=== PATIENT | female | born 1955 | race Caucasian/White ===

== ENCOUNTER 2020-07-27 13:41 | Observation (INO) | payer OTHER, SELFPAY ==
[2020-07-27] VITALS (8 sets, daily range): BP systolic 126–186; BP diastolic 79–114; PULSE 69–91; RESP 15–25; TEMP 36–37.1; O2SAT 91–97; BMI 19.7; BMI 18.8
--- NOTE | 2020-07-27 14:13 | CT_ITS ---
STUDY: CT BRAIN WITHOUT CONTRAST REASON FOR EXAM: Female, 65 years old. Intermittent dizziness/vomiting RADIATION DOSAGE (If Supplied By Facility): CTDIvol = ( 44.99 ) mGy, DLP = ( 779.24 ) mGycm TECHNIQUE: Transaxial CT imaging of the brain was performed without administration of intravenous contrast material. Individualized dose optimization techniques were used for this CT. COMPARISON: No relevant priors. FINDINGS: Normal soft tissue structures. Normal calvarium. There is mild cerebral atrophy with widening of the extra-axial spaces and ventricular dilatation. Normal white matter tracts of the cerebral hemispheres. Normal basal ganglia and thalami. Normal brainstem. Normal cerebellum. There is no intracranial hemorrhage. There are no findings of an acute ischemic infarction. Atherosclerotic plaque formation of the vertebral arteries and cavernous portions of the internal carotid arteries bilaterally. Normal visualized paranasal sinuses. CT/Brain/Head without Contrast IMPRESSION: Chronic involutional changes of the brain. Electronically Signed: Jose Saenz MD at 14:50 EST , Service support ,
--- NOTE | 2020-07-27 14:13 | RAD_ITS ---
STUDY: X-RAY CHEST REASON FOR EXAM: Female, 65 years old. Chest pain TECHNIQUE: Single AP portable view of the chest. COMPARISON: None. FINDINGS: EKG electrodes are seen. There is hyperinflation of the lungs consistent with chronic obstructive lung disease (COPD). There is blunting of both concerning angles with mild increased markings at the lung bases left greater than right suggestive of scarring. Normal size heart. Normal mediastinum and smitha. There is prominence of the pulmonary hilar arteries without peripheral pulmonary vascular congestion, suggesting pulmonary hypertension. There is atherosclerotic calcification of the aortic arch with tortuosity. There is a dextroscoliosis of the thoracic spine. Normal visualized ribs, clavicles, and shoulders. There is no demonstrated abnormality of the visualized soft tissue structures of the upper abdomen. RAD/Chest 1 View (Portable) IMPRESSION: Hyperinflation. Blunting of both costophrenic angles mild increased markings at the lung bases suggestive of atelectasis and/or scarring. This is slightly worse on the left side. Electronically Signed: Jose Saenz MD at 15:05 EST , Service support ,
--- NOTE | 2020-07-27 14:16 | ED.DCSUM_ITS ---
History of Present Illness Chief Complaint: Dizziness Informant: Patient Narrative: Patient is a 65-year-old female with a past medical history of COPD who presents to the emergency department for intermittent dizziness. She currently denies any active symptoms. She states this has been ongoing for the past 1 to 2 months. She states that she will have a day where she feels sick and she will go a few days without any symptoms. She describes as a room spinning sensation. She has to sit down and eventually her symptoms will resolve. She does not know aggravating symptoms. She does occasionally get nauseous and vomit without any dizziness. She denies any significant headache. No vision changes. Yesterday her daughter thought she was walking off to one side and said her eyes looked glazed over. She thought she might of had some speech issue at that time but this is since resolved. No shortness of breath past her baseline. No palpitations. No weakness or loss of sensation in any extremity. She has not tried taking anything for symptoms. Of note she has been feeling a pinching sensation in her chest. This does come and go as well. She does not know aggravating relieving factors for this either. No radiation of the symptoms. She denies any history of heart attacks, strokes or DVT/PE. She has a former smoking history and quit 8 years ago. She denies any significant cough. Past Medical History Prior records reviewed: Yes Surgical History: appendectomy Smoking Status: Former smoker - Family History Maternal Family History: Reports: - - no CVA Review of Systems All systems negative except as indicated General: Denies: Chills, Fever, Sweats Eyes: Denies: Visual changes - bilaterally, Diplopia ENT: Denies: Rhinorrhea, Sore throat Cardiovascular: Reports: Chest pain - Pinching sensation intermittently. Denies: Palpitations Respiratory: Denies: Dyspnea, Cough, Dyspnea on exertion Gastrointestinal: Denies: Abdominal pain, Nausea, Vomiting, Diarrhea Genitourinary: Denies: Dysuria, Hematuria, Frequency Musculoskeletal: Denies: Back pain, Extremity Pain Skin: Denies: Rash, Wounds Neurological: Reports: - - Dizziness. Denies: Headache, Weakness, Numbness Physical Exam Vital Signs/Narrative: Vital Signs Temp Pulse Resp BP Pulse Ox 07/27/20 13:42 96.8 F L 91 22 H 186/114 H 92 Inital Vital Signs reviewed: Yes General: Well nourished, Well developed, No Acute Distress Head: Normocephalic, Atraumatic Eyes: Perrl, EOMI, - - No nystagmus appreciated. ENT: Moist mucous membranes, No rhinorrhea Neck: Supple, Nontender Cardiovascular: Regular rate, Regular rhythm, No murmurs Respiratory: No distress, CTA bilaterally, Chest nontender, Decreased Air Movement Abdomen: Soft, Nontender, Nondistended, Normal bowel sounds Back: Nontender, Normal Inspection Extremities: Nontender, No edema Skin: Normal color, No rash Neurological: Alert, Oriented x3, Cranial nerves II-XII grossly intact, Normal Strength, Normal Sensation, - - NIH score 0. No discoordination.. Negative for: Left side facial droop, Right side facial droop Psychological: Normal affect, Normal Mood Diagnostic/Tx/Re-eval Chest X-Ray - ED: 1 View - Single view portable x-ray interpreted by myself. She does have emphysematous changes. Some scarring/atelectasis of lower bases bilaterally. No obvious consolidations. Normal cardiac silhouette. Agree with radiologist interpretation. - EKG Initial EKG Interpretation: - - Rate of 77 bpm and normal sinus rhythm. Normal intervals. Normal axis. No significant ST elevations or depressions. No T wave abnormali ties. - Medical Decision Making Patient presents to the ED for intermittent dizziness. Yesterday she thought she was walking up to one side and had a issue with her speech. She currently denies any symptoms now. She has had some intermittent pinching sensation in her chest. Upon arrival to the emerge department she is hypertensive. Satting in the low 90s on room air but in no respiratory distress. NIH score of 0 on arrival. She is not a TPA candidate for strokelike symptoms. Patient CT scan of her head did not reveal any acute intracranial abnormality. Lab work-up did not reveal any significant acute abnormality. Given the fact that she has had these intermittent vertigo-like symptoms but had an episode where she was walking up to one side and had issues with her speech I do feel this warrants a hospitalization for full stroke/TIA work-up. She otherwise has been stable throughout ED stay. Will bring to the hospital at this time. ED Disposition - Plan for ED Patient: Disposition: Acute Care Hospital [facility] Diagnosis: Dizziness, TIA (transient ischemic attack)
--- NOTE | 2020-07-27 14:31 | EKG12_ITS ---
Test Reason : Blood Pressure : / mmHG Vent. Rate : 077 BPM Atrial Rate : 077 BPM P-R Int : 158 ms QRS Dur : 072 ms QT Int : 412 ms P-R-T Axes : 077 054 058 degrees QTc Int : 466 ms Normal sinus rhythm with sinus arrhythmia Normal ECG Confirmed by JEY JACQUES, JONAH ([id number]), graphic editor LINK OTERO ([id number]) on 08/01/2020 2:18:38 PM Referred By: MEGHA Confirmed By:JONAH KHANNA MD
[2020-07-27 14:36] LABS: Absolute Lymphocyte Count 0.63 X10^3/uL (0.83-4.51); Absolute Neutrophil Count 3.1 X10^3/uL (2.0-7.7); Basophil# 0.03 X10^3/uL; Basophil% 0.7 % (0-1); Eosinophil# 0.07 X10^3/uL; Eosinophils% 1.6 % (0-5); Hematocrit 38.5 % (37-47); Hemoglobin 13.3 g/dL (12.0-15.0); Lymphocyte # 0.63 X10^3/ul (4.0); Lymphocyte % 14.4 % (19-41); Mean Corp Hgb Conc 34.5 g/dL (32-36); Mean Corpuscular Hgb 33.8 pg (27.0-32.0); Mean Platelet Vol. 8.8 fl (6.2-12.0); Monocyte# 0.59 X10^3/uL; Monocyte% 13.4 % (0-10); NRBC Flagged by Analyzer 0 % (0-5); Neutrophil # 3.06 X10^3/uL (2.7-7.7); Neutrophil % 69.7 % (47-70); Platelet Count 371 K/mm3 (150-450); RBC Distribution Width CV 15.5 % (11.6-14.6); RBC Distribution Width SD 55.2 fl (35.1-43.9); Red Blood Count 3.93 M/mm3 (4.2-5.4); White Blood Count 4.4 K/mm3 (4.4-11.0)
[2020-07-27 14:51] LABS: ALB/GLOB Ratio 1.1 RATIO (0.9-2.4); AST(SGOT) 31 U/L (15-37); Alanine Aminotransfer ALT/SGPT 37 U/L (13-56); Alkaline Phosphatase 81 U/L (45-117); Anion Gap 8 (5-15); BUN 13 mg/dL (7-18); Calcium,Total 8.9 mg/dL (8.5-10.1); Chloride 94 mmol/L (98-107); Creatinine, Serum 0.82 mg/dL (0.55-1.02); EST Glomerular Filtration Rate 75 mL/min (>60); Est Glom Filt Rate - Afr Amer 91 mL/min (>60); Estimated Creatinine Clearance 57.83 ml/min; Globulin 3.7 g/dL (2.2-4.2); Glucose 89 mg/dL (74-106); Potassium 3.7 mmol/L (3.5-5.1); Protein, Total 7.7 g/dL (6.4-8.2); Sodium Level 131 mmol/L (136-145)
--- NOTE | 2020-07-27 16:13 | HP.PCM_ITS ---
Problem List (1) Dizziness Status: Acute History of Present Illness Date of Admission: 07/27/20 Chief Complaint: dizziness The patient is a 65 year old F who for months has been experiencing intermittent dizziness. Particular happens when she changes position but though can go days without symptoms. When she does feel dizzy she does have nausea and vomiting but can also intermittent nausea vomiting without the dizziness. Yesterday, while she was feeling dizzy, was leaning towards 1 side and had slurred speech and the daughter noticed her eyes were glassed over. Given the worsening symptoms yesterday patient was brought to the emergency room. In the emergency room patient underwent a work-up that was unremarkable but given her ongoing symptoms the hospital service was contacted for admission for further neurologic assessment. [] Past Medical History Medical History: Medical History (Last Updated 07/27/20 @ 16:[address] 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 COPD (chronic obstructive pulmonary disease) J44.9 Surgical History: appendectomy Smoking Status: Former smoker Tobacco Use: Cigarettes Alcohol: Occasional - *Family History Maternal History Items: - - no CVA Review of Systems Constitutional: Denies: Anorexia, Chills, Fever, Night Sweats Eyes: Denies: Blurred vision, Double vision HEENT: Denies: Head Aches, Sinus Congestion, Sinus Drainage Cardiovascular: Denies: Chest Pain, Palpitations Respiratory: Denies: Cough, Shortness of breath at rest, Sputum production Gastrointestinal: Denies: Abdominal Pain, Nausea, Vomiting Genitourinary: Denies: Dysuria Musculoskeletal: Denies: Joint Pain, Joint Tenderness Skin: Denies: Rash, Wounds Neurological: Reports: Balance problems Psychiatric: Reports: Anxiety, Depression Comment: All review of systems were negative except as mentioned above in the history of present illness and the other review of systems. VTE Information - Inpt Only VTE Present on Admission: No VTE Mechan Device Prophylaxis: None VTE Pharm Prophylaxis ordered?: No Reason prophylaxis not ordered:: Treatment Not Indicated - Physical Exam Vitals/I&O's: Vital Signs Temp Pulse Resp BP Pulse Ox 36.0 C L 79 25 H 157/90 H 97 07/27/20 13:42 07/27/20 15:45 07/27/20 15:45 07/27/20 15:45 07/27/20 15:45 Oxygen Delivery Method Room Air Weight: 52.163 kg Body Mass Index (BMI) 19.7 General: Alert, Cooperative, No apparent distress HEENT: Atraumatic, PERRLA, EOMI, Normocephalic Oral: Moist Mucosa, No Gingival or Mucosal Lesions/ Ulcerations Neck: No Nodes, Thyroid Normal Size and Texture Lungs: Clear to auscultation, Normal air movement, No rhonchi, No wheeze Cardiovascular: Regular rate, Regular Rhythm, Normal S1, Normal S2, No murmurs Abdomen: Bowel Sounds Present, Soft, Non Tender, Non-Distended, No Hepato- splenomegaly Extremities: No edema, No Calf Tenderness Skin: No rashes, No breakdown Musculoskeletal: No Tenderness to Palpation of Joints or Extremities, No Muscle Wasting Neurological: Cranial nerves II-XII grossly intact, Motor Exam 5/5 strength throughout, Sensory exam intact to light touch and pain Psych/Mental Status: Normal Affect, Appropriate Laboratory Results 07/27/20 14:28: WBC 4.4, RBC 3.93 L, Hgb 13.3, Hct 38.5, MCV 98.0, MCH 33.8 H, MCHC 34.5, RDW Std Deviation 55.2 H, RDW Coeff of Wes 15.5 H, Plt Count 371, MPV 8.8, Immature Gran % (Auto) 0.200, Neut % (Auto) 69.7, Lymph % (Auto) 14.4 L, Hendricks % (Auto) 13.4 H, Eos % (Auto) 1.6, Baso % (Auto) 0.7, Absolute Neuts (auto) 3.1, Absolute Lymphs (auto) 0.63 L, Nucleated RBC % 0 07/27/20 14:28: Sodium 131 L, Potassium 3.7, Chloride 94 L, Carbon Dioxide 29.0, Anion Gap 8, BUN 13, Creatinine 0.82, Estim Creat Clear Calc 57.83, Est GFR (MDRD) Af Amer 91, Est GFR (MDRD) Non-Af 75, BUN/Creatinine Ratio 16.0, Glucose 89, Calcium 8.9, Total Bilirubin 0.40, AST 31, ALT 37, Alkaline Phosphatase 81, Troponin I < 0.015, Total Protein 7.7, Albumin 4.0, Globulin 3.7, Albumin/Globulin Ratio 1.1 EKG reviewed showed normal sinus rhythm without acute changes. Clinical Impression(s) from Imaging Studies Brain CT 07/27/20 14:13 IMPRESSION: Chronic involutional changes of the brain. Electronically Signed: Jose Saenz MD at 14:50 EST , Service support , Chest X-Ray 07/27/20 14:13 IMPRESSION: Hyperinflation. Blunting of both costophrenic angles mild increased markings at the lung bases suggestive of atelectasis and/or scarring. This is slightly worse on the left side. Electronically Signed: Jose Saenz MD at 15:05 EST , Service support , Assessment/Plan All Active Problems Dizziness (Acute) 1. Dizziness Etiology suspected to be benign paroxysmal positional vertigo, however cannot rule out CVA. Plan: * Check MRI of the brain and if positive for stroke then would check an MRA of the head neck. I am not ordering the MRA right away as my suspicion for this being stroke is very low given its intermittent nature. * As needed meclizine * PT OT evaluate and treat * Echocardiogram * Consider neurology consultation if positive stroke. * Patient will be started on aspirin but may discontinue if no evidence of stroke is identified. 2. HSV of the left eye Continue with valacyclovir 3. VTE prophylaxis: Low risk as she is observation status and not indicated. 4. Advanced care planning: Discussed with patient. Patient wishes to be full CODE STATUS. OBSV E&M: [id number] Initial observation care L3
--- NOTE | 2020-07-27 17:17 | MRI_ITS ---
STUDY: MRI BRAIN WITHOUT CONTRAST REASON FOR EXAM: Female, 65 years old. dizziness TECHNIQUE: Standardized multiplanar fat and water weighted pulse sequences were obtained. COMPARISON: CT of the brain 07/28/2019 FINDINGS: Mild atrophy and minimal periventricular white matter ischemic changes without mass effect or restricted diffusion. Normal bilateral basal ganglia. Normal thalami. There is no extra-axial fluid accumulation. Normal flow voids within the major intracranial circulation suggesting patency by spin echo criteria. Partial empty sella deformity likely of no significance. Normal infundibular stalk, optic chiasm and hypothalamus. Normal tectal plate and pineal gland. Normal midbrain, adeel and medulla. Normal cerebellum. Normal basal cisterns. Normal bilateral temporal bones. Normal bilateral internal auditory canals. No demonstrated orbital abnormality, within the constraints of a routine brain study. Normal visualized paranasal sinuses. Normal calvarium and skull base. Normal visualized soft tissue structures. Normal visualized upper cervical spine. MRI/Brain without Contrast IMPRESSION: Mild atrophy and minimal periventricular white matter ischemic change without evidence for acute infarct. Partial empty sella deformity likely of no significance. Electronically Signed: Adonay Wilson MD at 20:56 EST , Service support ,
--- NOTE | 2020-07-27 17:17 | ECHOD_ITS ---
Reason For Study: TIA/CVA Left Ventricle Normal left ventricle. Left ventricular systolic function is normal. The estimated ejection fraction is 55-60 %. Right Ventricle Normal systolic function. Atria Normal left atrium. Normal right atrium. 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 Mitral Valve The mitral valve is structurally normal. No prolapse or stenosis seen. There is mild to moderate mitral annular calcification. Tricuspid Valve Normal tricuspid valve. Mild to moderate (1-2+) tricuspid valve insufficiency. Aortic Valve Trivial aortic valve insufficiency. Pulmonic Valve The pulmonic valve is not well visualized. Great Vessels Normal aortic root. Inferior vena cava collapse with respiration. Pericardium/Pleural No pericardial effusion. Medication Performed a rapid injection of agitated mix of 9 cc saline and 1cc air to assess for atrial septal defect. MMode/2D Measurements & Calculations LVIDd: 3.9 cm IVSd: 0.82 cm Ao root diam: 3.1 cm LVIDs: 2.5 cm LVPWd: 0.89 cm RVDd: 3.6 cm FS: 37.0 % LAV(MOD-bp): 35.1 ml LVAd ap4: 21.8 cm2 SV(MOD-sp4): 30.6 ml LAV(MOD-bp) Indexed: 23.1 ml/m2 EDV(MOD-sp4): 55.6 ml LAV(MOD-sp2): 35.6 ml EDV(sp4-el): 55.2 ml LAV(MOD-sp4): 31.7 ml LVAs ap4: 13.4 cm2 ESV(MOD-sp4): 25.1 ml ESV(sp4-el): 24.6 ml EF(MOD-sp4): 55.0 % EF(sp4-el): 55.5 % SV(sp4-el): 30.7 ml LA A4 area: 13.9 cm2 LA dimension(2D): 3.8 cm RA A4 area: 10.3 cm2 Time Measurements MV dec time: 0.20 sec Doppler Measurements & Calculations MV E max yaw: 86.9 cm/sec Lat Peak E' Yaw: 10.8 cm/sec Med Peak E' Yaw: 6.7 cm/sec MV A max yaw: 79.3 cm/sec E/E' lat: 8.1 E/E' med: 12.9 MV E/A: 1.1 Ao V2 max: 132.7 cm/sec LV V1 max: 98.0 cm/sec PA V2 max: 107.1 cm/sec Ao max P.0 mmHg LV V1 max P.8 mmHg TR max yaw: 230.4 cm/sec TR max P.3 mmHg Interpretation Summary Left ventricular systolic function is normal. The estimated ejection fraction is 55-60 %. Mild to moderate (1-2+) tricuspid valve insufficiency. 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
[2020-07-27 18:03] LABS: Thyroid Stim Hormone (TSH) 0.68 uIU/mL (0.358-3.74)
--- NOTE | 2020-07-27 18:44 | NURSING ---
1743-Respiratory therapist, Irene, called to inform of order for cont. SpO2.
[2020-07-28] VITALS (7 sets, daily range): BP systolic 136–152; BP diastolic 77–87; PULSE 67–76; RESP 16–17; TEMP 36.4–37.4; O2SAT 90–99
[2020-07-28 06:34] LABS: Anion Gap 4 (5-15); BUN 12 mg/dL (7-18); BUN/Creat Ratio 19.1 RATIO (10-20); Calcium,Total 8.5 mg/dL (8.5-10.1); Chloride 99 mmol/L (98-107); Cholesterol 222 mg/dL (200); Creatinine, Serum 0.63 mg/dL (0.55-1.02); EST Glomerular Filtration Rate 102 mL/min (>60); Est Glom Filt Rate - Afr Amer 123 mL/min (>60); Estimated Creatinine Clearance 71.99 ml/min; Glucose 83 mg/dL (74-106); High Density Lipoprotein 105 mg/dL; Potassium 3.8 mmol/L (3.5-5.1); Sodium Level 135 mmol/L (136-145); Triglycerides 65 mg/dL; Very Low Density Lipoprotein 13 mg/dL (5-40)
[2020-07-28] MEDS: Aspirin 81 MG TAB.CHEW PO (09:13)
--- NOTE | 2020-07-28 13:05 | DCINST_ITS ---
- Discharge Diagnoses Current Active Problems: Current Active and Chronic Problems (Last Updated 07/27/20 @ 16:[address] Reynold Perez, DO) Dizziness (Acute) TIA (transient ischemic attack) (Acute) Reason(s) for Visit for Discharge Instructions: Dizziness/Stroke rule out You will use the following diet at home:: No restrictions, Regular Your food should be the consistency of: Regular Your liquids should be the consistency of: Regular/Thin Discharge Activity: Return to Normal Activity Return to work on:: 07/29/20 May shower in (days): 1 May resume sexual activity in: No Restrictions Weight Bearing Status: Weight bearing as tolerated Allergies/Adverse Reactions: Allergies No Known Allergies Allergy (Verified 07/27/20 17:18) Medications to take at Discharge Albuterol Aerosols [Ventolin Aerosols] 2.5 mg INHALATION Q6H PRN PRN 07/27/20 Albuterol IH (ProAir) [Proair Hfa] 2 puff INHALATION Q4H PRN PRN 07/27/20 Budesonide/Formoterol 160/4.5 [Symbicort 160/4.5 Mcg Inhaler (SP)] 1 puff INHALATION DAILY 07/27/20 Cholecalciferol (Vitamin D3) [D3-2000] 2,000 unit PO DAILY 07/27/20 Fluoxetine HCl 40 mg PO DAILY 07/27/20 Tiotropium [place] [Spiriva] 1 puff INHALATION DAILY 07/27/20 Valacyclovir HCl [Valtrex] 1,000 mg PO DAILY 07/27/20 prednisoLONE eye drops (5 mL) [Pred Forte eye drops (5 mL)] 1 drp LEFT EYE DAILY 07/27/20 Meclizine HCl [Antivert] 25 mg PO TID PRN PRN tab 07/28/20 Primary Care Physician: Rios Parry [Primary Care Provider] - Test Results: Test results from this visit will be discussed in further detail at your follow- up appointment, if applicable. Please Follow Up With: Primary care provider When: Within the next week Proposed Discharge Date: 07/28/20
--- NOTE | 2020-07-28 13:09 | DS.PCM_ITS ---
<Denis Overton - Last Filed: 07/28/20 13:53> Discharge Date and Diagnosis - Problem List Patient Problems: Active and Suspected Problems (Last Updated 07/27/20 @ 16:[address] Reynold Perez DO) Dizziness (Acute) Date of Admission: 07/27/20 Date of Discharge: 07/28/20 - Primary Discharge Diagnosis Acute Problems: Active Problems (Last Updated 07/27/20 @ 16:[address] Reynold Perez DO) Dizziness (Acute) TIA (transient ischemic attack) (Acute) Hospital Course and Treatment Imaging Results: Brain CT: No evidence of intracranial hemorrhage. No evidence of acute ischemic infraction. Altherosclerotic plaque formation of the vertebral arteries and cavernous portions of the internal carotid arteries. Brain MRI: Normal. Mild ischemic changes without mass effect or restricted diffuesion. Echocardiogram: LV systolic function is normal. Estimated EF is 55-60%. Mild to moderate tricuspid valve insufficiency. Bubble study is positive for Patent Foramen [place]. Operations: None Procedures: None Summary of Care Provided: A/P This patient is a 65 y/o female who was admitted on 07/27/20 with a chief complaint of dizziness, hemiplegia, and slurred speech. Patient was admitted for stroke evaluation. Brain CT and MRI were ordered. Both demonstrated no evidence of acute hemorrhage or ischemia. Echocardiogram demonstrated an estimated EF of 55-60%, normal LV systolic function, a PFO, and mild to moderate tricuspid valve insufficiency. 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 Patient seen by Denis Overton PA-C, under the supervision of Dr. Peacock Patient Problems: Active and Suspected Problems (Last Updated 07/27/20 @ 16:[address] Reynold Perez DO) Dizziness (Acute) - Physical Exam Vitals/I&O's: Vital Signs Temp Pulse Resp BP Pulse Ox 99.4 F H 74 17 145/83 H 94 07/28/20 12:10 07/28/20 12:10 07/28/20 12:10 07/28/20 12:10 07/28/20 12:10 Oxygen Flow Rate (L/min) 4 Oxygen Delivery Method Room Air Weight: 110 lb Body Mass Index (BMI) 18.8 Intake and Output for Last 24 Hours 07/26/20 07/27/20 07/28/20 23:59 23:59 23:59 Intake Total 350 / 350 350 / 350 Balance 350 / 350 350 / 350 General: Alert, Oriented x3, Cooperative HEENT: Atraumatic, PERRLA, EOMI, Normocephalic, - - HSV of the L. eye Neck: Supple, No JVD, Negative Carotid Bruits Lungs: Clear to auscultation, Normal air movement Cardiovascular: Regular rate, No murmurs Abdomen: Bowel Sounds Present, Soft, Non Tender Extremities: No edema, Capillary Refill Less than 3 Seconds Skin: No rashes, No breakdown Musculoskeletal: No Tenderness to Palpation of Joints or Extremities Neurological: Cranial nerves II-XII grossly intact Psych/Mental Status: Normal Affect, Appropriate Laboratory Results 07/27/20 14:28: WBC 4.4, RBC 3.93 L, Hgb 13.3, Hct 38.5, MCV 98.0, MCH 33.8 H, M CHC 34.5, RDW Std Deviation 55.2 H, RDW Coeff of Wes 15.5 H, Plt Count 371, MPV 8.8, Immature Gran % (Auto) 0.200, Neut % (Auto) 69.7, Lymph % (Auto) 14.4 L, [place] % (Auto) 13.4 H, Eos % (Auto) 1.6, Baso % (Auto) 0.7, Absolute Neuts (auto) 3.1, Absolute Lymphs (auto) 0.63 L, Nucleated RBC % 0 07/27/20 14:28: Sodium 131 L, Potassium 3.7, Chloride 94 L, Carbon Dioxide 29.0, Anion Gap 8, BUN 13, Creatinine 0.82, Estim Creat Clear Calc 57.83, Est GFR (MDRD) Af Amer 91, Est GFR (MDRD) Non-Af 75, BUN/Creatinine Ratio 16.0, Glucose 89, Calcium 8.9, Total Bilirubin 0.40, AST 31, ALT 37, Alkaline Phosphatase 81, Troponin I < 0.015, Total Protein 7.7, Albumin 4.0, Globulin 3.7, Albumin/Globulin Ratio 1.1 07/27/20 14:28: TSH 0.68 07/28/20 05:36: Sodium 135 L, Potassium 3.8, Chloride 99, Carbon Dioxide 32.0, Anion Gap 4 L, BUN 12, Creatinine 0.63, Estim Creat Clear Calc 71.99, Est GFR (MDRD) Af Amer 123, Est GFR (MDRD) Non-Af 102, BUN/Creatinine Ratio 19.1, Glucose 83, Calcium 8.5, Triglycerides 65, Cholesterol 222 H, LDL Cholesterol 104, VLDL Cholesterol 13, HDL Cholesterol 105 Current Medications Acetaminophen (Acetaminophen 325 Mg Tablet) 650 mg PO Q6H PRN PRN PRN Reason: Pain Score 1-10/Temp > 100.7 F Albuterol Sulfate (Albuterol 2.5 Mg/3 Ml Vial.Neb.) 2.5 mg INHALATION Q2H PRN PRN PRN Reason: SOB/Wheezing Aspirin (Aspirin 81 Mg Tab.Chew) 81 mg PO DAILY@0800 [facility] Last Admin: 07/28/20 09:13 Dose: 81 mg Documented by: Hydralazine HCl (Hydralazine 20 Mg/Ml Vial) 5 mg IV Q30M PRN PRN Reason: to maintain BP goals Labetalol HCl (Labetalol (Prefilled) 20 Mg/4 Ml) 10 - 20 mg IV Q10M PRN PRN PRN Reason: to Maintain BP Goals Meclizine HCl (Meclizine Hcl 25 Mg Tablet) 25 mg PO TID PRN PRN PRN Reason: Vertigo Ondansetron HCl (Ondansetron 4 Mg/2 Ml Vial) 4 mg IV Q8H PRN PRN PRN Reason: NAUSEA/VOMITING Sodium Chloride (0.9% Saline Lock 10 Ml Syringe) 10 - 40 ml IV UD PRN PRN Reason: SALINE FLUSH Discharge Activity: Return to Normal Activity Return to work on:: 07/29/20September shower in (days): 1 May resume sexual activity in: No Restrictions Weight Bearing Status: Weight bearing as tolerated Call your doctor if you observe: Numbness or Tingling, Shortness of breath, Dizziness, Fainting spells, Chest pain, Increased palpitations (irregular heartbeat), Calf discomfort, Uncontrolled pain Home Medications: Medications to take at Discharge Albuterol Aerosols [Ventolin Aerosols] 2.5 mg INHALATION Q6H PRN PRN 07/27/20 Albuterol IH (ProAir) [Proair Hfa] 2 puff INHALATION Q4H PRN PRN 07/27/20 Budesonide/Formoterol 160/4.5 [Symbicort 160/4.5 Mcg Inhaler (SP)] 1 puff INHALATION DAILY 07/27/20 Cholecalciferol (Vitamin D3) [D3-2000] 2,000 unit PO DAILY 07/27/20 Fluoxetine HCl 40 mg PO DAILY 07/27/20 Tiotropium [place] [Spiriva] 1 puff INHALATION DAILY 07/27/20 Valacyclovir HCl [Valtrex] 1,000 mg PO DAILY 07/27/20 prednisoLONE eye drops (5 mL) [Pred Forte eye drops (5 mL)] 1 drp LEFT EYE DAILY 07/27/20 Meclizine HCl [Antivert] 25 mg PO TID PRN PRN #14 tab 07/28/20 Following Prescriptions Were Given to Patient: Meclizine HCl [Antivert] 25 mg PO TID PRN PRN #14 tab PRN Reason: Vertigo Transmission Status: Received by [facility]/pharmacy #[id number] Primary Care Physician: Rios Parry [Primary Care Provider] - Please Follow Up With: Primary care provider When: Within the next week Disposition: Home Minutes spent on discharge:: 15 Patient Condition:: Good Medical Necessity - Tobacco Use Smoking Status: Former smoker Tobacco Use: Cigarettes Meaningful Use Info Meaningful Use Diagnoses (Choose all that apply): None applicable <AyushKaelakeith Fuchs - Last Filed: 07/29/20 09:43> Discharge Date and Diagnosis - Primary Discharge Diagnosis Acute Problems: Active Problems (Last Updated 07/27/20 @ 16:[address] Reynold Perez, DO) Dizziness (Acute) Hospital Course and Treatment Summary of Care Provided: Hospitalist note: Discharge summary above reviewed and I concur with above discharge treatment plan. Patient presented to the emergency room because of intermittent dizziness which was described as spinning sensation along with unsteadiness which has been going on for couple of weeks, it was positional. On the day of admission, she was leaning towards 1 side and she had reported slurred speech as well. She was admitted for evaluation for possible TIA. CT scan brain showed no acute findings. EKG revealed normal sinus rhythm without evidence of acute hemic changes or cardiac arrhythmias. Chest x-ray showed no acute findings. Routine blood work was unremarkable. TSH was normal. She was admitted to the floor, started on Antivert as needed. She had MRI done that showed no evidence of acute infarct or hemorrhage. 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 Acute stroke ruled out. Her symptoms are likely due to BPPV. Patient discharged home in stable medical condition, discharged on Antivert as needed for vertigo, recommended follow-up with PCP in 1 week. - Physical Exam General: Alert, Oriented x3, Cooperative, No apparent distress. HEENT: Atraumatic, PERRLA, EOMI. Neck: Supple, No JVD, Negative Carotid Bruits, Trachea Midline, Thyroid Normal. Lungs: Clear to auscultation, Normal air movement, No rhonchi, No wheeze, No rales. Cardiovascular: Regular rate, Regular Rhythm, Normal S1, Normal S2, PMI Normal. Abdomen: Bowel Sounds Present, Soft, Non Tender, Non-Distended, No Hepato- splenomegaly. Extremities: No clubbing, No cyanosis, No edema Skin: No rashes, No breakdown Neurological: Cranial nerves are intact, no focal deficit. Neuro grossly intact Vital Signs are stable. This note was generated with Seriously dictation software. It may contain incorrect words, spelling, and punctuation that were not noted in checking the note before signing. - Physical Exam Vitals/I&O's: Vital Signs Temp Pulse Resp BP Pulse Ox 99.4 F H 74 17 145/83 H 94 07/28/20 12:10 07/28/20 12:10 07/28/20 12:10 07/28/20 12:10 07/28/20 12:10 Oxygen Flow Rate (L/min) 4 Oxygen Delivery Method Room Air Weight: 110 lb Body Mass Index (BMI) 18.8 Intake and Output for Last 24 Hours 07/26/20 07/27/20 07/28/20 23:59 23:59 23:59 Intake Total 350 / 350 350 / 350 Balance 350 / 350 350 / 350 Laboratory Results 07/27/20 14:28: WBC 4.4, RBC 3.93 L, Hgb 13.3, Hct 38.5, MCV 98.0, MCH 33.8 H, MCHC 34.5, RDW Std Deviation 55.2 H, RDW Coeff of Wes 15.5 H, Plt Count 371, MPV 8.8, Immature Gran % (Auto) 0.200, Neut % (Auto) 69.7, Lymph % (Auto) 14.4 L, [place] % (Auto) 13.4 H, Eos % (Auto) 1.6, Baso % (Auto) 0.7, Absolute Neuts (auto) 3.1, Absolute Lymphs (auto) 0.63 L, Nucleated RBC % 0 07/27/20 14:28: Sodium 131 L, Potassium 3.7, Chloride 94 L, Carbon Dioxide 29.0, Anion Gap 8, BUN 13, Creatinine 0.82, Estim Creat Clear Calc 57.83, Est GFR (MDRD) Af Amer 91, Est GFR (MDRD) Non-Af 75, BUN/Creatinine Ratio 16.0, Glucose 89, Calcium 8.9, Total Bilirubin 0.40, AST 31, ALT 37, Alkaline Phosphatase 81, Troponin I < 0.015, Total Protein 7.7, Albumin 4.0, Globulin 3.7, Albumin/Globulin Ratio 1.1 07/27/20 14:28: TSH 0.68 07/28/20 05:36: Sodium 135 L, Potassium 3.8, Chloride 99, Carbon Dioxide 32.0, Anion Gap 4 L, BUN 12, Creatinine 0.63, Estim Creat Clear Calc 71.99, Est GFR (MDRD) Af Amer 123, Est GFR (MDRD) Non-Af 102, BUN/Creatinine Ratio 19.1, Glucose 83, Calcium 8.5, Triglycerides 65, Cholesterol 222 H, LDL Cholesterol 104, VLDL Cholesterol 13, HDL Cholesterol 105 Current Medications Acetaminophen (Acetaminophen 325 Mg Tablet) 650 mg PO Q6H PRN PRN PRN Reason: Pain Score 1-10/Temp > 100.7 F Albuterol Sulfate (Albuterol 2.5 Mg/3 Ml Vial.Neb.) 2.5 mg INHALATION Q2H PRN PRN PRN Reason: SOB/Wheezing Aspirin (Aspirin 81 Mg Tab.Chew) 81 mg PO DAILY@0800 [facility] Last Admin: 07/28/20 09:13 Dose: 81 mg Documented by: Hydralazine HCl (Hydralazine 20 Mg/Ml Vial) 5 mg IV Q30M PRN PRN Reason: to maintain BP goals Labetalol HCl (Labetalol (Prefilled) 20 Mg/4 Ml) 10 - 20 mg IV Q10M PRN PRN PRN Reason: to Maintain BP Goals Meclizine HCl (Meclizine Hcl 25 Mg Tablet) 25 mg PO TID PRN PRN PRN Reason: Vertigo Ondansetron HCl (Ondansetron 4 Mg/2 Ml Vial) 4 mg IV Q8H PRN PRN PRN Reason: NAUSEA/VOMITING Sodium Chloride (0.9% Saline Lock 10 Ml Syringe) 10 - 40 ml IV UD PRN PRN Reason: SALINE FLUSH Disposition: Home Minutes spent on discharge:: 26 Patient Condition:: Stable Meaningful Use Info Meaningful Use Diagnoses (Choose all that apply): None applicable OBSV E&M: 19588 Observation care discharge
--- NOTE | 2020-07-28 13:52 | CASEMGMT ---
Social Work SW met with pt in room and introduced self and role of SW. Pt presenting with stroke like symptoms. PHQ9 depression assessment completed with pt score of 2/27 indicating minimal depression. Pt denies depression and has no thoughts of harming herself nor concerns with returning home. SW explained association of stroke and depressions and encouraged pt that if she feels a decline in mood to reach out to PCP or counselor. No further SW needs at this time. SAURAV Pond
== END 2020-07-28 13:08 | disposition home or self-care (01) ==
LOC: ED 15:26 → PCU 16:18
PROVIDERS: Emergency Provider Emergency Medicine; PCP Student in an Organized Health Care Education/Training Program; Visit Provider Hospitalist
DX: G45.9 Transient cerebral ischemic attack, unspecified (principal); R47.81 Slurred speech; B00.50 Herpesviral ocular disease, unspecified; J44.9 Chronic obstructive pulmonary disease, unspecified; Z79.899 Other long term (current) drug therapy; Z87.891 Personal history of nicotine dependence; Z79.51 Long term (current) use of inhaled steroids
CPT/HCPCS: 36415; 70450; 70551; 71045; 80048; 80053; 80061; 84443; 84484; 85025; 93005; 93306; 94762; 99218; 99283; A4216; G0378

== ENCOUNTER → 2020-12-16 13:00 | Outpatient (CLI) | payer OTHER, SELFPAY ==
[2020-07-27 16:41] VITALS: BMI 18.8
--- NOTE | 2020-12-16 13:10 | MRI_ITS ---
STUDY: MRI BRAIN WITH AND WITHOUT CONTRAST MR INTERNAL AUDITORY CANALS WITHOUT AND WITH IV CONTRAST REASON FOR EXAM: Female, 65 years old. DIZZINESS TECHNIQUE: Standardized multiplanar fat and water weighted pulse sequences were obtained. IV 9ml Dotarem was administered for the contrast portion of the examination. COMPARISON: 27 July 2020 FINDINGS: Normal size of the ventricles and extra-axial spaces for the patient''s age. There is normal for age white matter periventricular involutional change. Normal bilateral basal ganglia. Normal thalami. There is no extra-axial fluid accumulation. Normal flow voids within the major intracranial circulation suggesting patency by spin echo criteria. Normal venous enhancement. There is no enhancing intra-axial or extra-axial abnormality. Normal sella turcica, pituitary gland, infundibular stalk, optic chiasm and hypothalamus. Normal tectal plate and pineal gland. Normal midbrain, adeel and medulla. Normal cerebellum. Normal basal cisterns. Normal bilateral temporal bones. Normal bilateral internal auditory canals. No demonstrated orbital abnormality, within the constraints of a routine brain study. Normal visualized paranasal sinuses. Normal calvarium and skull base. Normal visualized soft tissue structures. Normal visualized upper cervical spine. Cerebellopontine angles are clear. Cranial nerves VII and VIII and temporal bones are normal. MRI/Brain W/WO Contrast IMPRESSION: 1. Normal brain. 2. Normal temporal bone contents. Electronically Signed: Alexa Sanders MD at 18:26 EDT Tel , Service support ,
[2020-12-16 13:26] LABS: CREATININE FINGERSTICK < 0.6 mg/dL (0.55-1.02); EGFR FINGERSTICK > 60.0000 mL/min (>60)
== END ==
PROVIDERS: PCP Student in an Organized Health Care Education/Training Program; Referring Provider Otolaryngology; Visit Provider Otolaryngology
DX: R42 Dizziness and giddiness (principal)
CPT/HCPCS: 70553; A9575

== ENCOUNTER 2022-04-13 14:37 | Emergency (ER) | payer MEDICARE, OTHER, SELFPAY ==
[2022-04-13 14:38] VITALS: BP 219/106; PULSE 76; RESP 14; TEMP 36.8; O2SAT 95; BMI 19.0
[2022-04-13 14:40] VITALS: BP 192/104; PULSE 75; RESP 16; TEMP 36.7; O2SAT 93
[2022-04-13 14:42] VITALS: BP 192/104; PULSE 75; RESP 16; O2SAT 93
--- NOTE | 2022-04-13 14:49 | EDS_ITS ---
HPI History of Present Illness Chief Complaint: Wound Detail of Chief Complaint: Wound to left elbow Informant: patient Narrative Narrative: Patient presents the emergency department with complaint of a wound to her left elbow. Patient states that she fell onto her left elbow when she tripped over her dog 3 weeks ago. There was no laceration or open wound to the elbow at the time just mild soreness in really had a lot of swelling. 2 weeks later subsequently developed more pain and swelling in the area over the elbow opened up and started draining some yellow fluid. Patient was seen by her primary care physician and started on Keflex 3 days ago. Patient was seen again for follow- up today and there was no improvement in the appearance of the wound and was referred to the emergency department. Patient denies any fever or sweats. [facility] Medical History (Updated 04/13/22 @ 15:[address] 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 Home Medications Valacyclovir Hcl [Valtrex] 1,000 mg PO DAILY virus 07/27/20 [History Last Taken 07/26/20] albuterol sulfate 2.5 mg/3 mL (0.083 %) solution for nebulization 2.5 mg inhalation Q6H PRN PRN Sob &/Or Wheezing 07/27/20 [History Last Taken 07/27/20] albuterol sulfate 90 mcg/actuation aerosol inhaler 2 puff inhalation Q4H PRN PRN Sob &/Or Wheezing 07/27/20 [History Last Taken 07/25/20] budesonide-formoterol HFA 160 mcg-4.5 mcg/actuation aerosol inhaler 1 puff inhalation DAILY SOB 07/27/20 [History Last Taken 07/27/20] cholecalciferol (vitamin D3) 50 mcg (2,000 unit) capsule 2,000 unit PO DAILY SUPPLEMENT 07/27/20 [History Last Taken 07/26/20] fluoxetine 40 mg capsule 40 mg PO DAILY DEPRESSION 07/27/20 [History Last Taken 07/26/20] prednisolone acetate 1 % eye drops,suspension 1 drp LEFT EYE DAILY eye health 07/27/20 [History Last Taken 07/27/20] tiotropium bromide 18 mcg capsule with inhalation device 1 puff inhalation DAILY SOB 07/27/20 [History Last Taken 07/26/20] meclizine 25 mg tablet 25 mg PO TID PRN PRN Vertigo #14 tabs 07/28/20 [Rx Last Taken Unknown] cephalexin 500 mg capsule 500 mg PO Q6H 04/13/22 [History Last Taken Unknown] sulfamethoxazole 800 mg-trimethoprim 160 mg tablet 1 tab PO BID #20 TABLETS 04/13/22 [Rx Last Taken Unknown] Allergy/AdvReac Type Severity Reaction Status Date / Time No Known Allergies Allergy Verified 04/13/22 14:38 Social History Smoking Status: Former smoker ROS ROS ED Review of Systems ROS Unobtainable: other Constitutional Constitutional ED: Reports lethargy; Denies chills, fever(s), sweats or weight loss Eyes Eyes: Denies blurry vision, change in vision or diplopia ENT ENT ED: Denies rhinorrhea or sore throat Cardiovascular Cardiovascular: Denies chest pain, orthopnea or racing heartbeat Respiratory/Chest Respiratory/Chest: Denies cough, dyspnea, dyspnea on exertion, orthopnea or sputum Gastrointestinal Gastrointestinal: Denies abdominal pain, diarrhea, nausea or vomiting Genitourinary Genitourinary ED: Denies dysuria, hematuria or urinary frequency Musculoskeletal Musculoskeletal: Reports other Details: Left elbow pain and left elbow wound ; Denies arthralgias, back pain, myalgias or neck pain Integumentary Denies abscess, Abrasions or rash Neurologic Neurologic: Denies headache(s) or weakness Psychiatric Psychiatric: Denies anxiety, depression or suicidal thoughts Endocrine Endocrinology: Denies polydipsia, polyphagia or polyuria Hematologic/Lymphatic Hematologic/Lymphatic: Denies easy bleeding, easy bruising or lymphadenopathy Allergic/Immunologic Allergic/Immunologic ED: Denies mouth swelling, tongue swelling or urticaria EXAM Physical Exam Const Vital Signs: 04/13/22 14:38 04/13/22 14:42 04/13/22 14:40 Temperature 98.2 F 98.0 F Temperature Source Temporal Temporal Pulse Rate 76 75 75 Respiratory Rate 14 16 16 Blood Pressure 219/106 H 192/104 H 192/104 H Blood Pressure Mean 143 133 133 Pulse Ox 95 93 93 Oxygen Delivery Method Room Air Room Air Room Air Positive well nourished and well developed General Appearance ED: well developed and NAD HEENT Reports TM's clear and moist mucous membranes normocephalic and atraumatic; Negative for trauma or tenderness Tympanic Membrane ED: Yes TM's clear Eyes PERRL and EOMs intact bilaterally General Eye ED: Negative for pale conjunctiva or scleral icterus Neck no lymphadenopathy, supple and no JVD General: Negative for tenderness Chest Wall inspection of chest normal and palpation of chest normal Chest: Negative for tenderness Resp normal respiratory effort and clear to auscultation bilaterally Effort and Inspection: Negative for respiratory distress or pain with movement Auscultation: Negative for rhonchi, wheezes or diminished lung sounds Cardio regular rate, regular rhythm, S1 normal heart sound, S2 normal heart sound and no murmurs Peripheral Pulses: pulses 2+ throughout GI normal to inspection, nondistended, normoactive bowel sounds, soft to palpation, non-tender, non-distended and no masses Back/Spine no CVA tenderness and no thoracic nor lumbar tenderness Extremity Extremity Narrative: Left elbow-minimal tenderness palpation diffusely about the elbow. There appears to be a olecranon bursitis with a small 4 mm opening in the central portion of the skin with some yellow drainage from the wound. There are some chronic erythematous changes around the wound. Range of motion is relatively painless in flexion extension and pronation supination at the elbow. Minimal cellulitic changes. Neurovascularly intact distally. General Extremety ED: Negative for edema General Extremity: Negative for edema Neuro oriented x3, CN's II-XII intact bilaterally, no sensory deficits noted and gait normal Sensorium / Orientation: awake, alert, oriented to person, oriented to place and oriented to time Motor Exam: strength 5/5 throughout and strength abnormal Psych mental status grossly normal Skin no rashes or lesions noted and no wounds MDM MDM MDM Narrative Medical decision making narrative: I suspect patient had a bruise to her elbow and then subsequently developed a olecranon bursitis. The patient then developed a wound opening which allowed things to drain. Clinically I do not feel she needs to be admitted for IV antibiotics. Plan will be to start patient on Bactrim and have her continue with the Keflex. I will refer for follow-up to orthopedics and I will speak with orthopedic physician on-call Dr. Partida. Radiography Diagnostic Testing: Three-view x-rays of the left elbow obtained interpreted by myself no acute fractures or dislocations. No foreign bodies noted within the soft tissues. Official report from radiology will be pending. Discharge Plan Triage Chief Complaint: Wound ED Provider: Carole Da Silva Dx/Rx/DC Orders Clinical Impression: Contusion of elbow, left, Olecranon bursitis of left elbow Prescriptions: New sulfamethoxazole-trimethoprim [sulfamethoxazole-trimethoprim] 1 TABLET tablet 1 tab PO BID Qty: 20 0RF No Action fluoxetine 40 MG capsule 40 mg PO DAILY albuterol sulfate 2.5 MG/3 ML solution for nebulization 2.5 mg INHALATION Q6H PRN PRN (Reason: Sob &/Or Wheezing) prednisolone acetate 1 DROP drops,suspension 1 drp LEFT EYE DAILY albuterol sulfate 1 PUFF inhaler 2 puff INHALATION Q4H PRN PRN (Reason: Sob &/Or Wheezing) tiotropium bromide 18 MCG capsule, w/inhalation device 1 puff INHALATION DAILY budesonide-formoterol 1 INHALER inhaler 1 puff INHALATION DAILY cholecalciferol (vitamin D3) 50 MCG capsule 2,000 unit PO DAILY Valacyclovir Hcl [Valtrex] 1,000 MG tablet 1,000 mg PO DAILY meclizine 25 MG tablet 25 mg PO TID PRN PRN (Reason: Vertigo) Qty: 14 0RF cephalexin 500 mg capsule 500 mg PO Q6H Primary Care Provider: Rios Parry Referrals: Luis A Partida DO [Med Staff - Active Staff] - 3-5 Days Rios Parry [Primary Care Provider] - Disposition Disposition: Home, Self Care
--- NOTE | 2022-04-13 14:58 | RAD_ITS ---
STUDY: X-RAY - LEFT ELBOW REASON FOR EXAM: Female, 67 years old. Pain following injury. TECHNIQUE: 3 view(s) of the elbow. COMPARISON: None. FINDINGS: Normal visualized humerus, radius and ulna. Normal radiocapitellar and ulnotrochlear articulations. The soft tissue structures are unremarkable. RAD/Elbow min 3 Views IMPRESSION: Normal x-ray examination of the elbow. Electronically Signed: Jose Saenz MD at 15:20 EST ,
== END 2022-04-13 15:50 | disposition home or self-care (01) ==
PROVIDERS: Emergency Provider Emergency Medicine; PCP Student in an Organized Health Care Education/Training Program; Visit Provider Emergency Medicine
DX: S50.02XA Contusion of left elbow, initial encounter (principal); J44.9 Chronic obstructive pulmonary disease, unspecified; M70.22 Olecranon bursitis, left elbow; Z87.891 Personal history of nicotine dependence; W01.0XXA Fall on same level from slipping, tripping and stumbling without subsequent striking against object, initial encounter
CPT/HCPCS: 73080; 87070; 87205; 99282